=== PATIENT | male | born 1970 | race Two or more races ===

== ENCOUNTER 2020-06-02 10:10 | Emergency (ER) | payer SELFPAY ==
[~2020-06-02] VITALS: Ht 172.7 cm; Wt 99.3 kg
[2020-06-02 11:23] LABS: RAPID INFLUENZA A Negative (Negative); RAPID INFLUENZA B Negative (Negative)
[2020-06-02 11:30] VITALS: BP 128/78
== END 2020-06-02 11:45 | disposition home or self-care (01) ==
LOC: ED 11:35
DX: U07.1 COVID-19 (principal); J02.9 Acute pharyngitis, unspecified; B34.9 Viral infection, unspecified; R07.89 Other chest pain; R51.9 Headache, unspecified; R05 Cough; R09.81 Nasal congestion
CPT/HCPCS: 71045; 87400; 87635; 99284